=== PATIENT | female | born 1950 | race Caucasian/White ===

== ENCOUNTER 2020-08-07 11:50 | Emergency (ER) | payer MEDICARE ==
[~2020-08-07] VITALS: Ht 152.4 cm; Wt 113.4 kg
--- NOTE | ~2020-08-07 | EMS ---
[address] [address] EMS Patient Care Report Name: HUMBLE VANG Room #: DEP OVIDIO Up#: [id number] Admission: 08/07/20 Attend Phys: Discharge: 08/07/20 Date of : 50 Report #: [id number] THIS REPORT FOR: //name// Report Transmitted: 08/08/2020 09:24 EMS Care Summary [place], [place]/[facility] Incident [id number] @ 08/07/2020 11:[address] [place] [address] Patient HUMBLE VANG Female, 69 Years 1950 Patient Address [address] [place], [place] [id number] Patient History Hypertension (HTN),Gastro-Esophageal Reflux Disease (GERD), Patient Allergies No known allergies, Patient Medications Other, Valtrex, Wellbutrin, Chief Complaint pain to left shoulder and Disposition Transported No Lights/[place] Dispatch Reason Traumatic Injury Transported To [facility] Narrative PT STATES THAT PT FELL FROM A STANDING POSITION. PT MAHAD LOC. PT HAS GOOD PMS THRUOUT CALL. PT STATES THAT THE PAIN HURT UP INTO HER NECK AND THAT THE PAIN IN HER NECK IS CONSTANTLY THERE. PT DENIES BLOOD THINNERS. PT STATES THAT PT [facility] [address] [place] [address] EMS Patient Care Report Name: HUMBLE VANG Room #: DEP ER Jeovanny#: [id number] Admission: 08/07/20 Attend Phys: Discharge: 08/07/20 Date of : 50 Report #: [id number] WAS AT HOSPICE TO GET HER SECOND COVID SHOT. PT STATES THAT PT TAKES A MEDICATION THAT WILL NOT ALLOW PAIN MEDICATIONS TO WORK BUT CANNOT RECALL THE NAME OF THE MEDICATION. PT STATES THAT PT IS NOT ABLE TO STAND BECUASE OF THE INABLITY TO USE HER ARM. PT HAS NO OTHER COMPLAINTS. PT WAS FOUND SITTINGIN A WHEEL CHAIR OF [facility]. PT SPPOKE IN FULL AND COMPLETE SENTENCES. PT HAS A SHPULDER SPLINT BRACE ON PT'S LEFT ARM. PT WITH EMS ASSITANCE AND A GATE BELT ARE ABLE TO STAND AND PIVOT PT GET PT UPON EMS COT. PT HAS NO OTHER OBVIOUS ABNORMALITIES. Initial Vitals @11:43P: 70,R: 18,BP: 105/52,Pain: 10/10,GCS: 15,CO: 2,SpO2: 97,Revised Trauma: 12, Assessments @11:52MENTAL:Person Oriented,Time Oriented,Place Oriented,Event Oriented,SKIN:HEENT:Eyes: Left Pupil: 4-mm,Eyes: Right Pupil: 4-mm,Head/Face: No Abnormalities,Neck/Airway: No Abnormalities,LUNG SOUNDS:General: No Abnormalities,ABDOMEN:General: No Abnormalities,PELVIS//GI:EXTREMITIES:Capillary Refill: Left Upper: < 2 Sec,Left Arm: No Abnormalities,Right Arm: No Abnormalities,Right Leg: No Abnormalities,PULSE:Radial: 2+ Normal,NEURO:No Abnormalities, Impression Pain (Non-Traumatic) Procedures @11:35ALS AssessmentResponse: UnchangedSucceeded Timeline 11:18,Call Received 11:18,Dispatch Notified 11:19,Dispatched 11:21,En Route 11:32,On Scene 11:34,At Patient 11:35,ALS Assessment,Response: UnchangedSucceeded, 11:40,Depart Scene 11:43,BP: 105/52 M,PULSE: 70,RR: 18 R,SPO2: 97 Ox,ETCO2: ,BG: ,PAIN: 10,GCS: 15, 11:46,At Destination 12:10,Call Closed Disclaimer [email or web address] Copyright 2020 [employer] This EMS Care Summary contains data elements from the applicable legal record [address] [address] EMS Patient Care Report Name: HUMBLE VANG [id number] Admission: 08/07/20 Attend Phys: Discharge: 08/07/20 Date of : 50 Report #: [id number] (which may be displayed differently). It is designed to provide pertinent information for the following purposes: continuity of care, clinical quality, and state data reporting. The complete legal record is available to ED staff and administrators of the receiving hospital in [employer]'s Patient Tracker. All data is provided "as is."
[2020-08-07 11:52] VITALS: BP 116/98
[2020-08-07] MEDS ORDERED: FLEXERIL PO (12:56)
== END 2020-08-07 13:10 | disposition home or self-care (01) ==
LOC: ER 11:50
DX: M54.12 Radiculopathy, cervical region (principal); M54.6 Pain in thoracic spine; M25.522 Pain in left elbow; M25.512 Pain in left shoulder; G89.29 Other chronic pain; F17.210 Nicotine dependence, cigarettes, uncomplicated; W01.0XXA Fall on same level from slipping, tripping and stumbling without subsequent striking against object, initial encounter; Y93.89 Activity, other specified; Y92.238 Other place in hospital as the place of occurrence of the external cause; Y99.8 Other external cause status